=== PATIENT | male | born 1945 | race Caucasian/White ===

== ENCOUNTER 2016-07-18 20:59 | Inpatient (IN) | payer BC, OTHER ==
[~2016-07-18] VITALS: Ht 188 cm; Wt 100.7 kg
[~2016-07-18 20:59] MED LIST: BACL10TA PO; DEXL60CA3 PO; RANI300T4 PO; TAMS-11 PO
[2016-07-18 21:00] VITALS: BP_SYST 125
--- NOTE | 2016-07-18 21:00 | NUR ---
MD Alfaro at bedside examining pt
--- NOTE | 2016-07-18 21:00 | NUR ---
Placed in room 1 . Placed on monitor technician, blood pressure machine and pulse oximeter. To gown for exam. Side rails up. Report given to Wilver GOODWIN.
--- NOTE | 2016-07-18 21:05 | NUR ---
Pt BIB EMS with c/o headache, having palpitation, and vomitting x2 today. Pt stated he was seen at [facility] today, was discharged, current T 102.3 temporal. A&Ox4, denies SOB or chestpain, skin intact. non-diaphoretic. Will continue to monitor
[2016-07-18] MEDS ORDERED: NACL 0.9% 1,000 ML IV ONE (21:15)
[2016-07-18 21:26] LABS: HEMOGLOBIN 12.1 g/dL (14.0-18.0); WHITE BLOOD COUNT (AUTO) 8.6 K/uL (4.8-10.8)
[2016-07-18 21:30] LABS: CALCIUM 9.3 mg/dL (8.4-11.0); CREATININE 1.54 mg/dL (0.55-1.30); POTASSIUM 3.4 mmol/L (3.5-5.1)
[2016-07-18 21:32] LABS: HEMATOCRIT 35.8 % (36-54); MEAN CORPUSCULAR HEMOGLOBIN 30 pg (27-31); MEAN CORPUSCULAR HGB CONC 34 % (32-36); MEAN CORPUSCULAR VOLUME 90 fL (79.0-98.0); PLATELET COUNT (AUTO) 407 K/uL (130-430); RED BLOOD CELL COUNT(AUTO) 3.99 MIL/uL (4.2-6.2); RED CELL DISTRIBUTION WIDTH 12.8 % (9.0-15.0)
[2016-07-18 21:34] LABS: ALBUMIN 2.8 g/dL (3.4-4.8); TOTAL BILIRUBIN 1.8 mg/dL (0.0-1.0)
[2016-07-18 21:35] LABS: INR 1.1 (0.80-1.20); PROTHROMBIN TIME 12.3 SECS (9.5-12.5)
[2016-07-18 21:41] LABS: BAND % (MANUAL) 9 % (0-6); BASOPHILS % (MANUAL) 0 % (0-2); EOSINOPHILS % (MANUAL) 1 % (0-7); LYMPHOCYTES % (MANUAL) 8 % (20-46); METAMYELOCYTES % 1 % (0-0); MONOCYTES % (MANUAL) 2 % (0-11)
[2016-07-18] MEDS ORDERED: KETOROLAC TROMETHAMINE 30 MG VIAL IVP ONE (21:45)
[2016-07-18] MEDS ORDERED: PIPERACILLIN/TAZO 3.375 GM in NS 50 ML IV ONE (22:00)
[2016-07-18] MEDS ORDERED: NACL 0.9% 2,000 ML IV ONE (22:00)
[2016-07-18] MEDS ORDERED: AMLO5TAB4 PO (22:26)
--- NOTE | 2016-07-18 22:27 | NUR ---
Medication reconciliation completed with information provided by - partial list from patient and outdated list in chart. Any prior medication reconciliation on file was reviewed and corrected.
[2016-07-18] MEDS ORDERED: PIPERACILLIN/TAZOBACTAM 3.375 GM/VIAL (ZOSYN) IV ONE (22:35)
--- NOTE | 2016-07-18 22:51 | NUR ---
Pt screened positive for sepsis. First lactic acid 4.1 , sepsis protocol initiated. Pt given 3 L NS bolus, zosyn 3.375 mg IV, blood cult x2, lactic acid x2. Sepsis protocol met
--- NOTE | 2016-07-18 22:56 | NUR ---
Medication reconciliation completed with information provided by pt. Any prior medication reconciliation on file was reviewed and corrected.
[2016-07-18] MEDS ORDERED: KCL 10 mEq in 50 mL (PREMIX) 50 ML IV ONE (23:15)
[2016-07-18] MEDS ORDERED: PANTOPRAZOLE SODIUM 40 MG/VIAL (PROTONIX) IVP ONE (23:15)
[2016-07-18] MEDS ORDERED: ONDANSETRON HCL 4 MG/2 ML VIAL IVP PRN (23:15)
[2016-07-18] MEDS ORDERED: COMMUNICATION ORDER XX ONE (23:15)
[2016-07-18] MEDS ORDERED: fentaNYL CITRATE/PF 100 MCG/2 ML AMP IVP ONE (23:30)
--- NOTE | 2016-07-18 23:30 | NUR ---
Patient will be admitted to care of . Admitted to telemtry unit. Will go to room 119A. Belongings list completed. Summary report printed. Report will be given at bedside. Transfer to 119A via ACLS protocol. 2 Licensed nurse present. IV present no signs or symptoms of infiltration.
[2016-07-18 23:31] LABS: BILIRUBIN,URINE 1+ (NEGATIVE); BLOOD, URINE 1+ (NEGATIVE); CLARITY/URINE CLEAR (CLEAR); COLOR,URINE AMBER (YELLOW); GLUCOSE,URINE NEGATIVE (NEGATIVE); KETONES,URINE NEGATIVE (NEGATIVE); LEUKOCYTE ESTERASE ,URINE TRACE (NEGATIVE); NITRITE, URINE NEGATIVE (NEGATIVE); PROTEIN URINE 1+ (NEGATIVE)
--- NOTE | 2016-07-18 23:33 | NUR ---
ADMISSION: The patient, SHIKHA RIBERA, 71 y/o, M admitted by JENNY JUNE MD, was given written information regarding hospital policies, unit procedures and contact persons.
[2016-07-18 23:38] VITALS: BP_SYST 136
[2016-07-19 00:01] LABS: BACTERIA,URINE MODERATE /HPF (None Seen); COARSE GRANULAR CASTS,URINE 0-3 /LPF (None Seen); FINE GRANULAR CASTS,URINE 0-3 /LPF (None Seen); MUCUS,URINE 1+ /LPF (None Seen)
--- NOTE | 2016-07-19 00:02 | NUR ---
Consult Called Reason for consultation: sepsis abd oain, perforated diverticulitis Consulting Physician: DR. PETERSON New Media Strategist Spoke with Elbert Order by DR. JUNE
--- NOTE | 2016-07-19 00:07 | NUR ---
Consult Called Reason for consultation: Bilateral lower abd masses Radiation Control Technician Physician: DR. PETERSON Radiation Control Technician Spoke with Elbert Order by Dr. Catherine
--- NOTE | 2016-07-19 00:10 | NUR ---
Consult Called Reason for consultation: Sepsis abd oain, perforated diverticulis Database Specialist Physician: Grant Database Specialist Spoke with Elbert Order by Dr Catherine
[2016-07-19 00:29] VITALS: BP_SYST 136
[2016-07-19] MEDS ORDERED: KCL 20 mEq in 100 mL (PREMIX) 100 ML IV ONE (00:36)
[2016-07-19] MEDS: POTASSIUM CHLORIDE 10 MEQ in NACL 0.9% 1,000 ML IV SCH ×2 (00:49→10:11)
--- NOTE | 2016-07-19 01:03 | NUR ---
Phoned Paged DR JUNE regarding clarification of orders , communication order , further dosing per pharmacy / .
[2016-07-19] MEDS ORDERED: COMMUNICATION ORDER XX ONE (01:30)
--- NOTE | 2016-07-19 01:31 | NUR ---
SPOKE WITH DR Catherine , [facility] To dose clarification of orders / .
--- NOTE | 2016-07-19 01:33 | NUR ---
Phone [facility] [phone] ANDREW Simmons , did update regarding clarification of orders .
[2016-07-19] MEDS: MORPHINE 2 MG/ML INJ. SYRINGE IVP PRN ×2 (01:51→06:55)
--- NOTE | 2016-07-19 03:10 | NUR ---
MORPHINE SULFATE 2 MG IVP given for pain general & helpful .
--- NOTE | 2016-07-19 03:10 | NUR ---
ZOFRAN 4 MG IVP given for GI upset & helpful .
[2016-07-19] MEDS ORDERED: PIPERACILLIN/TAZOBACTAM 3.375 GM/VIAL (ZOSYN) IV ONE (04:00)
[2016-07-19 04:25] VITALS: BP_SYST 110
--- NOTE | 2016-07-19 06:20 | NUR ---
ZOFRAN 3.375 GM IVPB ADMINISTER as ordered , patient resting this hour / . Addendum: 07/19/16 at 2100 by Carlos Garcia RN ZOSYN 3.375 GM IVPB .
[2016-07-19] MEDS: ZOSYN (PIPERACILLIN/TAZO) 3.375 GM in DEX-ISO (50ml) IV SCH ×3 (06:54→18:00)
[2016-07-19 07:20] LABS: ALBUMIN 2.2 g/dL (3.4-4.8); BASOPHILS % (AUTO) 0.1 % (0.0-2.0); BILIRUBIN,DIRECT 1.4 mg/dL (0.0-0.3); CALCIUM 8.5 mg/dL (8.4-11.0); CREATININE 1.12 mg/dL (0.55-1.30); EOSINOPHILS % (AUTO) 0.2 % (0.0-4.0); HEMATOCRIT 32.7 % (36-54); HEMOGLOBIN 11.2 g/dL (14.0-18.0); LYMPHOCYTES # (AUTO) 0.9 K/uL (1.0-5.5); LYMPHOCYTES % (AUTO) 4.5 % (20.5-51.5); MEAN CORPUSCULAR HEMOGLOBIN 31 pg (27-31); MEAN CORPUSCULAR HGB CONC 34 % (32-36); MEAN CORPUSCULAR VOLUME 89 fL (79.0-98.0); MONOCYTES # (AUTO) 0.6 K/uL (0.0-1.0); MONOCYTES % (AUTO) 3.1 % (1.7-9.3); NEUTROPHILS # (AUTO) 18.5 K/uL (1.8-7.7); NEUTROPHILS % (AUTO) 92.1 % (40.0-70.0); PLATELET COUNT (AUTO) 354 K/uL (130-430); POTASSIUM 3.7 mmol/L (3.5-5.1); RED BLOOD CELL COUNT(AUTO) 3.66 MIL/uL (4.2-6.2); RED CELL DISTRIBUTION WIDTH 13.1 % (9.0-15.0); TOTAL BILIRUBIN 2.2 mg/dL (0.0-1.0); TOTAL PROTEIN, SERUM 5.9 g/dL (6.4-8.3)
[2016-07-19 07:50] VITALS: BP_SYST 118
--- NOTE | 2016-07-19 07:51 | NUR ---
OPENING NOTE RECEIVED REPORT FROM BUDDY HERNANDEZ AT BEDSIDE. PT VS STABLE WITH HR OF 86. 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 WILL CONTINUE TO MONITOR HIS PAIN
--- NOTE | 2016-07-19 08:11 | NUR ---
DR PETERSON AT BEDSIDE INFORMED THAT PT PAIN IS NOT BEING MANAGED WELL WITH CURRENT PRN ANALGESICS
[2016-07-19 08:28] VITALS: BP_SYST 111
[2016-07-19] MEDS ORDERED: PANTOPRAZOLE SODIUM 40 MG/VIAL (PROTONIX) IVP ONE (09:30)
--- NOTE | 2016-07-19 10:00 | NUR ---
ROUNDS PT PAIN STILL NOT MANAGED. WILL GIVE NEW PRN ORDER OF DILAUDID AND CONTINUE TO MONITOR FOR S/S OF PAIN
[2016-07-19] MEDS: HYDROmorphone 2 MG/ML VIAL IVP PRN ×2 (10:12→14:15)
[2016-07-19] MEDS: metroNIDAZOLE 500 mg/NS 100 ML IV SCH ×2 (10:20→14:14)
--- NOTE | 2016-07-19 10:30 | NUR ---
D/C PLANNING NOTE RECIEVED CALL FROM DR PETERSON, WHO STATED HE WANTS TO DISCHARGE THE PATIENT TO A DIFFERENT FACILITY [facility]. DR JUNE NOTIFIED.
--- NOTE | 2016-07-19 11:33 | NUR ---
DC PLANNING: RECEIVED TRANSFER ORDER FROM DR. JUNE, INFORMED HER ALSO THAT DR. PETERSON WAS TRYING TO GET HOLD OF THE SUPERVISOR COLOR PASTE MIXING RADIOLOGIST AT [facility] BUT NOBODY IS AVAILABLE YET AND HE WILL LET CM/BINDING DYER KNOW. FAXED CLINICALS TO [facility] FAX# [phone]. TO F/U. Addendum: 07/19/16 at 1409 by Brunilda Ford RN JOVANI FROM [facility] -RADIOLOGY DEPT CALLED, SHE SAID "EVERYTHING IS SET UP FOR THE PATIENT TO HAVE THE OUT PATIENT PROCEDURE, DR. PETERSON ALREADY TALKED TO THEIR DOCTOR", SHE WANTS THE PATIENT TO BE THERE ASAP. [facility] FROM ADMITTING CALLED AND GAVE ROOM# 273 BED 1 (ESTHER), PLS GIVE REPORT TO RN TEL# [phone] EXT. [phone] . ARRANGED TRANSPORTATION VIA [facility]. INFORM PATIENT AND SIGNIFICANT OTHER ABOUT THE PLAN AND THAT MEDICARE MIGHT COVER OR NOT COVER THE TRANSPORTATION BECAUSE IT'S HOSPITAL TO HOSPITAL TRANSFER , VERBALIZED UNDERSTANDING. Addendum: 07/19/16 at 1520 by Brunilda Ford RN GOT AN ORDER FROM DR. JUNE--MAY USE BLS TRANSPORT TO [facility] OUT [facility]IENT [facility]ED[facility] AND CALL DR. JUNE IF THERE IS ANY CHANGE IN CONDITION. Addendum: 07/19/16 at 1629 by Brunilda Ford RN DR JUNE CALLED AND SAID THE PATIENT WILL BE IN -PATIENT AT [facility] AFTER THE PROCEDURE, TORB THE TRANSFER/ DISCHARGE ORDER OF DR. JUNE. JUSTINA GOODWIN AWARE. Addendum: 07/20/16 at 1341 by Brunilda Ford RN ADDENDUM: RECEIVED A CALL FROM DR JUNE YESTERDAY 07/19/16 AT 1700 THAT PT WILL BE COMING BACK AFTER THE PROCEDURE. JUSTINA GOODWIN AWARE.
--- NOTE | 2016-07-19 11:59 | NUR ---
FAMILY AT BEDSIDE - ELENA SUE ([facility]) TEL; CELL. [phone] SHE HAD QUESTIONS REGARDING TRANSFER [facility] . INFORMED HER THAT PER THE CASE MANAGEMENT, THEY ARE TRYING FOR BOTH HOSPITALS WHICHEVER IS AVAILABLE.
--- NOTE | 2016-07-19 12:00 | NUR ---
ROUNDS PT IS SLEEPING IN BED, FAMILY AT BEDSIDE
[2016-07-19 12:26] VITALS: BP_SYST 122
--- NOTE | 2016-07-19 14:38 | NUR ---
CALLED ATTENDING MD DR JUNE, RE: DOWNGRADE LEVEL OF CARE FROM TELE TO MED SURGE. SPOKE TO SHAGUFTA
--- NOTE | 2016-07-19 15:00 | NUR ---
TELEPHONE REPORT PROVIDED I GAVE REPORT TO BUDDY RIVAS, WHO WILL BE RECEIVING PT AT [facility] FOR THE SCHEDULED PROCEDURE.
--- NOTE | 2016-07-19 15:00 | NUR ---
CONSENT TO TRANSFER SIGNED PT SIGNED CONSENT TO TRANSFER, REGARDING THE SCHEDULED PROCEDURE AT [facility]. THE AUTO RENTAL CLERK EXPLAINED PT IS NOT BEING DISCHARGED AND THAT THEY WILL RETURN TO BED 199-A AFTER THE PROCEDURE IS COMPLETED
[2016-07-19 15:15] VITALS: BP_SYST 140
--- NOTE | 2016-07-19 15:15 | NUR ---
PT TRANSFER TO [facility]SPORT [facility] RECEIVED PT AT 1515 FOR TRANSPORTATION TO [facility] FOR SCHEDULED PROCEDURE. IV INFUSIONS STOPPED AND IV SALINE LOCKED FOR TRANSPORT. VS STABLE, PT COMFORTABLE, AND PT FRIEND ELENA IS ACCOMPANYING HIM. PT IS SCHEDULED TO RETURN TO BED 119-A AFTER THE PROCEDURE.
--- NOTE | 2016-07-19 16:40 | NUR ---
Fax current medication list to [facility] TO BUDDY Martin whom report was also given to earlier : . Addendum: 07/19/16 at 1642 by Nicole Bernard RN This information was already included in packet but the RN stated he could not see Flagyl order on it. Thus the list was reprinted and sent.
--- NOTE | 2016-07-19 16:42 | NUR ---
call from dr Catherine, She asked that a Fax of her history and physical dictation be sent to [phone] Catherine[address]. Transmission Confirmation received.
--- NOTE | 2016-07-19 17:06 | NUR ---
Call from Telephonic Rn Brunilda. - Patient will be coming back. Per Brunilda, Dr Catherine stated that the patient will be coming back to [place] after the procedure. Do not discharge patient.
--- NOTE | 2016-07-19 17:08 | NUR ---
Called [facility] informed RN that per Dr Catherine patient will be coming back to [facility] . Addendum: 07/19/16 at 1736 by Nicole Bernard RN Per BUDDY Martin, Patient will be staying over night per Karel Cazares their radiologist who will be doing the procedure. Addendum: 07/19/16 at 1757 by Nicole Bernard RN Informed Mario GOODWIN about the order for Zyvox 600mg IV. Will refax the updated Med list.
--- NOTE | 2016-07-19 17:32 | NUR ---
Dr Nikolas Espinosa Per He stopped the Flagyl Addendum: 07/19/16 at 1739 by Nicole Bernard RN informed that patient is at [facility] and will be coming back after procedure.
--- NOTE | 2016-07-19 17:39 | NUR ---
Dr Catherine paged to clarify about if the patient coming back or not. Informed her that per Mario the [facility] RN, the patient will be staying over night per the Radiologist doing the procedure at [facility].
--- NOTE | 2016-07-19 18:15 | NUR ---
Call from Mario GOODWIN at [facility] . Clarified the Zyvox order from dr Connor. Gave him the order as ordered and also he confirmed receit of the fax of current med list.
--- NOTE | 2016-07-19 18:16 | NUR ---
Patients belongings remain at bedside, Veronica Zuñiga patients marquis took his glasses . Back of shoes, black shorts, underwear , orange polo shirt socks and shoes are at bedside in patients room. Labeled and remains in patient bedside table.
[2016-07-19] MEDS ORDERED: LACTOBACILLUS RHAMNOSUS GG 1 CAP CAPSULE PO SCH (21:00)
[2016-07-19] MEDS ORDERED: LINEZOLID 300 ML IV SCH (21:00)
[2016-07-20] MEDS ORDERED: PANTOPRAZOLE SODIUM 40 MG/VIAL (PROTONIX) IVP SCH (09:00)
--- NOTE | 2016-07-20 13:43 | NUR ---
DC PLANNING: RECEIVED A CALL FROM SASHA NEELY AT [facility]. HE SAID DR. JUNE TOLD HIM THAT PATIENT WILL JUST STAY THERE UNTIL DISCHARGE. CALLED AND CONFIRMED W/ DR. JUNE .
== END 2016-07-19 15:15 | disposition short-term general hospital (02) | DRG 871 ==
LOC: SED 20:59 → STU 23:16 → UNDODISIN 07-20 11:30
PROVIDERS: ADMIT Internal Medicine; ATTEND Internal Medicine
DX: A41.9 Sepsis, unspecified organism (principal); E43 Unspecified severe protein-calorie malnutrition; N17.9 Acute kidney failure, unspecified; E87.6 Hypokalemia; I10 Essential (primary) hypertension; E78.5 Hyperlipidemia, unspecified; E78.00 Pure hypercholesterolemia, unspecified; Z85.46 Personal history of malignant neoplasm of prostate; Z87.442 Personal history of urinary calculi; Z90.79 Acquired absence of other genital organ(s); Z79.899 Other long term (current) drug therapy; Z68.28 Body mass index [BMI] 28.0-28.9, adult
CPT/HCPCS: 36415; 71010; 80048; 80053; 80076; 81000-TC; 82150-TC; 83605; 83690-TC; 83735-TC; 83880; 84484; 85007; 85025; 85027; 85610-TC; 85730-TC; 87040-TC; 87081; 87086; 93005; 96365; 96375; 99291; C9113; J1170; J1885; J2020; J2270; J2405; J2543; J3010; J3480; J3490; J7030; J7060

== ENCOUNTER 2018-06-12 05:11 | Emergency (ER) | payer OTHER ==
[~2018-06-12] VITALS: Ht 182.9 cm; Wt 104.3 kg
[2018-06-12 05:11] VITALS: BP_SYST 161
[~2018-06-12 05:11] MED LIST changes: +AMLO5TAB4 PO; -DEXL60CA3 PO; +DEXL60CA4 PO
[2018-06-12] MEDS ORDERED: FUROSEMIDE 40 MG/4 ML VIAL IVP ONE (05:30)
[2018-06-12] MEDS ORDERED: NITROGLYCERIN 1 INCH (GM) OINT. TD ONE (05:30)
[2018-06-12 06:07] LABS: ANION GAP 6 (5-15); CALCIUM 8.6 mg/dL (8.4-11.0); CHLORIDE 108 mmol/L (98-107); CREATININE 1.41 mg/dL (0.55-1.30); GLUCOSE 121 mg/dL (70-99); POTASSIUM 4.1 mmol/L (3.5-5.1); SODIUM SERUM 140 mmol/L (136-145); UREA NITROGEN, BLOOD 21 mg/dL (8-21)
[2018-06-12 06:10] LABS: INR 1.1 (0.80-1.20); PROTHROMBIN TIME 11.4 SECS (9.5-12.5)
[2018-06-12 06:11] LABS: HEMATOCRIT 42.4 % (36-54); HEMOGLOBIN 14.3 g/dL (14.0-18.0); MEAN CORPUSCULAR HEMOGLOBIN 31 pg (27-31); MEAN CORPUSCULAR HGB CONC 34 % (32-36); MEAN CORPUSCULAR VOLUME 92 fL (79.0-98.0); NEUTROPHILS % (AUTO) 61.8 % (40.0-70.0); PLATELET COUNT (AUTO) 225 K/uL (130-430); RED BLOOD CELL COUNT(AUTO) 4.62 MIL/uL (4.2-6.2); RED CELL DISTRIBUTION WIDTH 13.8 % (9.0-15.0); WHITE BLOOD COUNT (AUTO) 8.2 K/uL (4.8-10.8)
[2018-06-12 06:12] LABS: BASOPHILS # (AUTO) 0.1 K/uL (0.0-0.2); BASOPHILS % (AUTO) 1.1 % (0.0-2.0); EOSINOPHILS # (AUTO) 0.3 K/uL (0.0-0.4); EOSINOPHILS % (AUTO) 3.6 % (0.0-4.0); LYMPHOCYTES # (AUTO) 2.1 K/uL (1.0-5.5); MONOCYTES # (AUTO) 0.6 K/uL (0.0-1.0); MONOCYTES % (AUTO) 7.5 % (1.7-9.3); NEUTROPHILS # (AUTO) 5.1 K/uL (1.8-7.7)
[2018-06-12 06:18] LABS: ALANINE AMINOTRANSFERASE 23 U/L (12-78); ALBUMIN 3.5 g/dL (3.4-4.8); ASPARTATE AMINOTRANSFERASE 17 U/L (10-37); TOTAL BILIRUBIN 0.8 mg/dL (0.0-1.0)
[2018-06-12] MEDS ORDERED: cloNIDine HCL 0.1 MG TABLET PO ONE (06:45)
[2018-06-12 07:09] VITALS: BP_SYST 153
== END 2018-06-12 07:09 | disposition home or self-care (01) ==
LOC: SED 05:11
DX: I11.0 Hypertensive heart disease with heart failure (principal); I50.9 Heart failure, unspecified; Z86.79 Personal history of other diseases of the circulatory system; I48.91 Unspecified atrial fibrillation; Z87.442 Personal history of urinary calculi; Z85.46 Personal history of malignant neoplasm of prostate; Z79.899 Other long term (current) drug therapy
CPT/HCPCS: 36415; 71045; 80053; 83880; 84484; 85025; 85610; 85730; 93005; 96374; 99284; J1940

== ENCOUNTER 2018-06-16 02:47 | Inpatient (IN) | payer OTHER, BC ==
[~2018-06-16] VITALS: Ht 182.9 cm; Wt 100.7 kg
[2018-06-16 02:51] VITALS: BP_SYST 147
[2018-06-16] MEDS ORDERED: NACL 0.9% 1,000 ML IV ONE (02:55)
[2018-06-16] MEDS ORDERED: ASPIRIN 81 MG TAB.CHEW PO ONE (03:00)
[2018-06-16] MEDS ORDERED: FUROSEMIDE 100 MG/10 ML VIAL IVP ONE (03:00)
[2018-06-16] MEDS ORDERED: methylPREDNISolone SOD SUCC/PF 62.5 MG/ML VIAL IVP ONE (03:00)
[2018-06-16] MEDS ORDERED: ALBUTEROL SULFATE 0.083% 2.5 MG/3 ML VIAL.NEB IH ONE (03:00)
[2018-06-16] MEDS ORDERED: IPRATROPIUM BROM 0.5 MG/2.5 ML VIAL.NEB (ATROVENT) IH ONE (03:00)
[2018-06-16 03:28] LABS: BASOPHILS % (AUTO) 1.4 % (0.0-2.0); EOSINOPHILS % (AUTO) 3.5 % (0.0-4.0); HEMATOCRIT 42.8 % (36-54); HEMOGLOBIN 14.3 g/dL (14.0-18.0); LYMPHOCYTES % (AUTO) 30.3 % (20.5-51.5); MEAN CORPUSCULAR HEMOGLOBIN 30 pg (27-31); MEAN CORPUSCULAR HGB CONC 33 % (32-36); MEAN CORPUSCULAR VOLUME 91 fL (79.0-98.0); MONOCYTES % (AUTO) 9.3 % (1.7-9.3); NEUTROPHILS % (AUTO) 55.5 % (40.0-70.0); PLATELET COUNT (AUTO) 227 K/uL (130-430); RED BLOOD CELL COUNT(AUTO) 4.71 MIL/uL (4.2-6.2); RED CELL DISTRIBUTION WIDTH 13.8 % (9.0-15.0); WHITE BLOOD COUNT (AUTO) 7.5 K/uL (4.8-10.8)
[2018-06-16 03:29] LABS: BASOPHILS # (AUTO) 0.1 K/uL (0.0-0.2); EOSINOPHILS # (AUTO) 0.3 K/uL (0.0-0.4); LYMPHOCYTES # (AUTO) 2.3 K/uL (1.0-5.5); MONOCYTES # (AUTO) 0.7 K/uL (0.0-1.0); NEUTROPHILS # (AUTO) 4.2 K/uL (1.8-7.7)
[2018-06-16 03:35] LABS: BILIRUBIN,URINE NEGATIVE (NEGATIVE); BLOOD, URINE NEGATIVE (NEGATIVE); CLARITY/URINE CLEAR (CLEAR); COLOR,URINE YELLOW (YELLOW); GLUCOSE,URINE NEGATIVE (NEGATIVE); KETONES,URINE NEGATIVE (NEGATIVE); LEUKOCYTE ESTERASE ,URINE NEGATIVE (NEGATIVE); NITRITE, URINE NEGATIVE (NEGATIVE); PROTEIN URINE NEGATIVE (NEGATIVE); UROBILINOGEN,URINE 0.2 (0.2-1.0)
[2018-06-16 03:39] LABS: ANION GAP 8 (5-15); CALCIUM 8.9 mg/dL (8.4-11.0); CHLORIDE 107 mmol/L (98-107); CREATININE 1.53 mg/dL (0.55-1.30); GLUCOSE 126 mg/dL (70-99); POTASSIUM 3.8 mmol/L (3.5-5.1); SODIUM SERUM 137 mmol/L (136-145); UREA NITROGEN, BLOOD 21 mg/dL (8-21)
[2018-06-16 03:43] LABS: INR 1.1 (0.80-1.20); PROTHROMBIN TIME 11.1 SECS (9.5-12.5)
[2018-06-16 03:44] LABS: ALANINE AMINOTRANSFERASE 18 U/L (12-78); ALBUMIN 3.6 g/dL (3.4-4.8); ASPARTATE AMINOTRANSFERASE 13 U/L (10-37); LIPASE 123 U/L (73-393); TOTAL BILIRUBIN 0.6 mg/dL (0.0-1.0)
[2018-06-16] MEDS ORDERED: PRAV20TA PO (03:52)
[2018-06-16] MEDS ORDERED: APIX5TAB PO (03:55)
[2018-06-16] MEDS ORDERED: METO25TA6 PO (03:55)
[2018-06-16] MEDS ORDERED: OLME40TA12 PO (03:55)
[2018-06-16 05:27] VITALS: BP_SYST 157
[2018-06-16] MEDS ORDERED: LORazepam 2 MG/ML VIAL IVP PRN (06:30)
[2018-06-16] MEDS ORDERED: ONDANSETRON HCL 4 MG/2 ML VIAL IVP PRN (06:30)
[2018-06-16] MEDS ORDERED: HYDROcodone/ACETAMIN 10-325 MG TAB PO PRN (06:30)
[2018-06-16] MEDS ORDERED: HYDROcodone/ACETAMIN 5-325 MG TAB (NORCO/ VICODIN) PO PRN (06:30)
[2018-06-16] MEDS ORDERED: BACLOFEN 10 MG TABLET PO SCH (06:30)
[2018-06-16] MEDS ORDERED: ACETAMINOPHEN 325 MG TABLET PO PRN (06:30)
[2018-06-16 08:02] VITALS: BP_SYST 150
[2018-06-16] MEDS: amLODIPine BESYLATE 5 MG TABLET PO SCH (08:03)
[2018-06-16] MEDS: METOPROLOL TARTRATE 25 MG TABLET PO SCH ×2 (08:03→21:03)
[2018-06-16] MEDS: APIXABAN 2.5 MG TABLET PO SCH ×2 (09:26→21:05)
[2018-06-16] MEDS: LOSARTAN POTASSIUM 50 MG TABLET (COZAAR) PO SCH (09:27)
[2018-06-16 12:43] VITALS: BP_SYST 148
[2018-06-16] MEDS: NORMAL SALINE 5 ML DISP.SYRIN IVF SCH ×2 (14:12→21:03)
[2018-06-16 16:46] VITALS: BP_SYST 126
[2018-06-16 20:00] VITALS: BP_SYST 137
[2018-06-16] MEDS ORDERED: SIMVASTATIN 10 MG TABLET PO SCH (21:00)
[2018-06-17 00:20] VITALS: BP_SYST 124
[2018-06-17 06:09] LABS: ANION GAP 8 (5-15); CALCIUM 9.1 mg/dL (8.4-11.0); CHLORIDE 106 mmol/L (98-107); CREATININE 1.33 mg/dL (0.55-1.30); GLUCOSE 125 mg/dL (70-99); POTASSIUM 4.2 mmol/L (3.5-5.1); SODIUM SERUM 140 mmol/L (136-145); UREA NITROGEN, BLOOD 22 mg/dL (8-21)
[2018-06-17 06:14] LABS: PHOSPHORUS 2.8 mg/dL (2.7-4.5)
[2018-06-17] MEDS: NORMAL SALINE 5 ML DISP.SYRIN IVF SCH (06:26)
[2018-06-17 06:57] LABS: WHITE BLOOD COUNT (AUTO) 14.9 K/uL (4.8-10.8)
[2018-06-17 06:58] LABS: BASOPHILS # (AUTO) 0.1 K/uL (0.0-0.2); BASOPHILS % (AUTO) 0.9 % (0.0-2.0); EOSINOPHILS % (AUTO) 0.3 % (0.0-4.0); HEMATOCRIT 41.3 % (36-54); HEMOGLOBIN 14.2 g/dL (14.0-18.0); LYMPHOCYTES # (AUTO) 1.6 K/uL (1.0-5.5); LYMPHOCYTES % (AUTO) 10.7 % (20.5-51.5); MEAN CORPUSCULAR HEMOGLOBIN 32 pg (27-31); MEAN CORPUSCULAR HGB CONC 35 % (32-36); MEAN CORPUSCULAR VOLUME 92 fL (79.0-98.0); MONOCYTES # (AUTO) 1.1 K/uL (0.0-1.0); MONOCYTES % (AUTO) 7.1 % (1.7-9.3); NEUTROPHILS # (AUTO) 12.1 K/uL (1.8-7.7); PLATELET COUNT (AUTO) 307 K/uL (130-430); RED BLOOD CELL COUNT(AUTO) 4.51 MIL/uL (4.2-6.2); RED CELL DISTRIBUTION WIDTH 14.2 % (9.0-15.0)
[2018-06-17 08:00] VITALS: BP_SYST 136
[2018-06-17] MEDS: amLODIPine BESYLATE 5 MG TABLET PO SCH (08:45)
[2018-06-17] MEDS: METOPROLOL TARTRATE 25 MG TABLET PO SCH (08:45)
[2018-06-17] MEDS: LOSARTAN POTASSIUM 50 MG TABLET (COZAAR) PO SCH (08:46)
[2018-06-17] MEDS: APIXABAN 2.5 MG TABLET PO SCH (08:47)
[2018-06-17 12:16] VITALS: BP_SYST 146
[2018-06-17 12:17] VITALS: BP_SYST 146
== END 2018-06-17 12:45 | disposition home or self-care (01) | DRG 682 ==
LOC: SED 02:47 → STU 04:57
PROVIDERS: ADMIT Preventive Medicine Preventive Medicine/Occupational Environmental Medicine; ATTEND Preventive Medicine Preventive Medicine/Occupational Environmental Medicine
DX: N17.0 Acute kidney failure with tubular necrosis (principal); I50.23 Acute on chronic systolic (congestive) heart failure; I13.0 Hypertensive heart and chronic kidney disease with heart failure and stage 1 through stage 4 chronic kidney disease, or unspecified chronic kidney disease; I48.0 Paroxysmal atrial fibrillation; I25.10 Atherosclerotic heart disease of native coronary artery without angina pectoris; N18.3 Chronic kidney disease, stage 3 (moderate); I25.9 Chronic ischemic heart disease, unspecified; E78.5 Hyperlipidemia, unspecified; Z82.5 Family history of asthma and other chronic lower respiratory diseases; Z85.46 Personal history of malignant neoplasm of prostate; Z87.442 Personal history of urinary calculi; Z79.899 Other long term (current) drug therapy; Z90.79 Acquired absence of other genital organ(s)
CPT/HCPCS: 36415; 36600; 71045; 80048; 80053; 81003; 82550-TC; 82803-TC; 83605; 83690-TC; 83735-TC; 83880; 84100-TC; 84484; 85025; 85379; 85610-TC; 85730-TC; 93005; 93306; 94640; 96361; 96374; 96375; 99285; G0378; J1940; J2930; J7613